=== PATIENT | female | born 1955 | race Caucasian/White ===

== ENCOUNTER 2019-10-07 15:57 | Emergency (ER) | payer MEDICARE, MEDICAID, SELFPAY ==
--- NOTE | 2019-10-07 16:00 | ED.GENADULT ---
HPI - General Adult General Chief complaint: Upper Respiratory Infection Stated complaint: chest discomfort/cough/head congestion Time Seen by Provider: 10/07/19 16:14 Source: patient Mode of arrival: ambulatory Limitations: no limitations History of Present Illness HPI narrative: 64-year-old female patient presents to the [facility] with complaints of chest pain that started intermittently about a week ago however today has become more consistent. Patient states the chest pain is mostly to the left upper chest and does radiate to the back at times. Patient states that she also developed a cough at the same time. Patient denies any fevers. Patient denies any abdominal pain, nausea, vomiting or diarrhea. Patient states she has had a little bit of shortness of breath. Patient does admit to marijuana use occasionally but denies any smoking cigarettes. Patient states she has felt a little lightheaded and dizzy at times. Patient denies any fevers, nausea, vomiting. Patient states she has had a little bit of diarrhea that started today. Patient denies taking anything for her symptoms. Patient states that she did take an 81 mg baby aspirin daily. Does have a history of heart bypass, high cholesterol as well as type 2 diabetes. Related Data Home Medications Medication Instructions Recorded Confirmed alprazolam [Xanax] 0.5 mg PO BID 05/06/19 10/07/19 aspirin [Aspirin Low Dose] 81 mg PO DAILY 05/06/19 10/07/19 bupropion HCl 200 mg PO DAILY 05/06/19 10/07/19 escitalopram oxalate 20 mg PO DAILY 05/06/19 10/07/19 levothyroxine 75 mcg PO DAILY 05/06/19 10/07/19 memantine [Namenda] 10 mg PO BID 05/06/19 10/07/19 metformin 1,000 mg PO DAILY 05/06/19 10/07/19 mirtazapine [Remeron] 7.5 mg PO DAILY 05/06/19 10/07/19 omeprazole 20 mg PO DAILY 05/06/19 10/07/19 trazodone 50 mg PO HS 05/06/19 10/07/19 atorvastatin 20 mg PO DAILY 10/07/19 10/07/19 donepezil 10 mg PO 10/07/19 10/07/19 quetiapine 400 mg PO DAILY 10/07/19 10/07/19 Allergies Allergy/AdvReac Type Severity Reaction Status Date / Time chlordiazepoxide Allergy Unknown Unknown Verified 10/07/19 16:02 diazepam Allergy Unknown Unknown Verified 10/07/19 16:02 diphenhydramine Allergy Unknown Unknown Verified 10/07/19 16:02 latex Allergy Unknown Unknown Verified 10/07/19 16:02 naproxen Allergy Unknown Unknown Verified 10/07/19 16:02 trifluoperazine Allergy Unknown Unknown Verified 10/07/19 16:02 Review of Systems Review of Systems: Narrative: CONSTITUTIONAL: Denies fever, chills, or sweats. EYES: Denies visual changes, redness, or discharge. ENT: Denies rhinorrhea, congestion, sore throat, or otalgia. CARDIOVASCULAR: Positive left upper chest pain that radiates to the back, denies palpitations, or edema. RESPIRATORY: Positive cough or dyspnea. GASTROINTESTINAL: Denies abdominal pain, nausea, vomiting, positive diarrhea. GENITOURINARY: Denies dysuria or hematuria. SKIN: Denies rash or itching. MUSCULOSKELETAL: Denies back pain, joint pain, or myalgia. NEUROLOGIC: Denies headache, numbness, or weakness. PSYCHIATRIC: Denies anxiety or depression. 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 There is no relevant family history pertinent to the presenting complaint. Exam Narrative: Exam Narrative: GENERAL: Well-appearing, well-nourished, and in no acute distress. HEAD: Normocephalic, atraumatic
--- NOTE | 2019-10-07 16:05 | ECG_ITS ---
Measurements Intervals [place] Rate: 60 P: 63 [place]: 170 QRS: 46 QRSD: 85 T: 40 QT: 414 QTc: 416 Interpretive Statements SINUS RHYTHM NONSPECIFIC ST & T-WAVE ABNORMALITY- DIFFUSE LEADS BORDERLINE ECG Electronically Signed On 10-07-2019 17:10:58 CDT by Gilmar Cheatham D.O.
[2019-10-07 16:06] VITALS: BP 117/64; PULSE 73; RESP 20; TEMP 36.9; O2SAT 98
[2019-10-07 16:15] VITALS: PULSE 73
[2019-10-07] MEDS: ASPIRIN 81 MG CHEWABLE TABLET 324 MG PO (16:25)
[2019-10-07 16:32] VITALS: O2SAT 99
== END 2019-10-07 16:32 | disposition short-term general hospital (02) ==
PROVIDERS: Emergency Provider Nurse Practitioner Family; PCP Family Medicine
DX: R07.9 Chest pain, unspecified (principal); E11.9 Type 2 diabetes mellitus without complications; F12.90 Cannabis use, unspecified, uncomplicated; E03.9 Hypothyroidism, unspecified; I25.10 Atherosclerotic heart disease of native coronary artery without angina pectoris; Z95.5 Presence of coronary angioplasty implant and graft; Z95.1 Presence of aortocoronary bypass graft; Z96.652 Presence of left artificial knee joint
CPT/HCPCS: 93005; 99215; A9270; G0463